=== PATIENT | female | born 1965 | race Caucasian/White ===

== ENCOUNTER 2022-08-15 12:44 | Day surgery (SDC) | payer OTHER ==
--- NOTE | 2022-08-13 08:58 | P.HPOR ---
History of Present Illness H&P Date: 08/13/22 Subjective: This is a 57 year old female that presents today for initial evaluation regarding a left wrist injury that occurred on 08/04/2022. Patient states she was at her home and fell down the stairs, landing onto an outstretched wrist. She was seen at [facility] emergency room the day of the injury and underwent closed reduction and splint immobilization. She's been in her splint. Since then, she has had swelling, bruising and pain in the affected extremity. She is left-hand dominant. 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 She denies any prior injuries to this hand or wrist in the past. Physical Examination: LUE: AIN/PIN/Radial/Ulnar/Median motor intact. Radial/Ulnar/Median SILT. 2+/4 Radial/Ulnar pulses palpated. 5/5 APB, 5/5 FDI. Able to make partial fist. Bruising/swelling present of dorsum hand. Remainder of exam limited due to pain. Imaging: X-Rays of the left wrist 3V taken in office today demonstrate a comminuted intra-articular distal radius fracture with 20 degrees of dorsal angulation at 30 percent dorsal displacement. Non displaced ulnar styloid fracture. Impression: 1.) Left distal radius fracture, displaced. 2.) Left non displaced ulnar styloid fracture Plan: Diagnosis and treatment options were discussed with the patient. visit amount of displacement and angulation and her activity demands, I recommend surgical intervention with a left distal radius open reduction internal fixation. Risks and benefits of surgery including bleeding, infection, damage to surrounding tissue, need for further surgery, residual numbness were discussed and the patient wished to go forward with surgery. I anticipate 6 weeks off of work post operatively. She is placed in a new volar splint in office today and is to remain non-weight bearing and is to rest ice and elevate up to the date of surgery. The patient was agreeable with this plan. -Eric Bates DO Orthopedic Hand/Upper Extremity Surgeon Past Medical History Past Medical History: Musculoskeletal Disorder Additional Past Medical History / Comment(s): tripped & fell down stairs 08/04/22, currently has splint left wrist History of Any Multi-Drug Resistant Organisms: None Reported Past Surgical History: Breast Surgery Additional Past Surgical History / Comment(s): kai breast augmentation Additional Past Anesthesia/Blood Transfusion Reaction / Comment(s): only had local anes. for breast augmentation, no family problems w/anes. Smoking Status: Former smoker Medications and Allergies Home Medications Medication Instructions Recorded Confirmed Type Cholecalciferol [Vitamin D3 (25 25 mcg PO DAILY 08/10/22 08/10/22 History Mcg = 1000 Iu)] HYDROcodone/APAP 7.5-325MG [Eudora 1 tab PO Q6HR PRN 08/10/22 08/10/22 History 7.5-325] Multivit/Folic Acid/Vit K1 1 each PO DAILY 08/10/22 08/10/22 History [One-A-Day Women's 50 Plus Tab] traZODone HCL [Desyrel] 50 mg PO HS 08/10/22 08/10/22 History Allergies Allergy/AdvReac Type Severity Reaction Status Date / Time Penicillins Allergy Swelling Verified 08/10/22 15:46 Physical Examination Osteopathic Statement: *. No significant issues noted on an osteopathic structural exam other than those noted in the History and Physical/Consult.
[~2022-08-15 12:44] MED LIST: DEXAMETHASONE SOD PHOSPHATE 4 MG/ML 1 ML VIAL IV ONE; LACTATED RINGERS 1,000 ML IV SCH; LIDOCAINE 1% (10MG/ML) FOR IV START INTRADERMA PRN; MIDAZOLAM 2 MG/2 ML VIAL IV PRN; MORPHINE SULFATE 4 MG/ML SYRINGE IV PRN; ONDANSETRON 4 MG/2 ML VIAL IVP ONE
[2022-08-15] MEDS ORDERED: LACTATED RINGERS 1,000 ML IV ONE (13:05)
[2022-08-15 13:43] LABS: Basophils % (A) 0 %; Eosinophils # (A) 0.2 k/uL (0-0.7); Eosinophils % (A) 3 %; HCT 42.6 % (34.0-46.0); Lymphocytes # (A) 1.8 k/uL (1.0-4.8); Lymphocytes % (A) 33 %; MCH 31.6 pg (25.0-35.0); MCHC 32.9 g/dL (31.0-37.0); MCV 96.1 fL (80.0-100.0); Mean Platelet Volume 7.2; Monocytes # (A) 0.3 k/uL (0-1.0); Monocytes % (A) 6 %; Neutrophils # (A) 3.2 k/uL (1.3-7.7); Neutrophils % (A) 57 %; Platelet Count 323 k/uL (150-450); RBC 4.44 m/uL (3.80-5.40); RDW 12.2 % (11.5-15.5); WBC 5.6 k/uL (3.8-10.6)
[2022-08-15] MEDS ORDERED: MIDAZOLAM 2 MG/2 ML VIAL IVP ONE (13:46)
[2022-08-15 13:57] LABS: African American GFR (CKD) >90 (>60 ml/min/1.73 sqM); Anion Gap 12 mmol/L; Blood Urea Nitrogen 16 mg/dL (7-17); Calcium 9.9 mg/dL (8.4-10.2); Carbon Dioxide 27 mmol/L (22-30); Chloride 102 mmol/L (98-107); Glucose 81 mg/dL (74-99); Non-African American GFR(CKD) 90 (>60 ml/min/1.73 sqM); Potassium 4.4 mmol/L (3.5-5.1); Sodium 141 mmol/L (137-145)
[2022-08-15] MEDS ORDERED: SCOPOLAMINE 1 MG/72 HR PATCH TRANSDERM ONE (14:00)
--- NOTE | 2022-08-15 14:25 | P.ANPRN ---
Procedure Note - Anesthesia - Nerve Block Performed Left Supraclavicular Single Time Out Performed: Yes Date of Procedure: 08/15/22 Procedure Start Time: 13:45 Procedure Stop Time: 13:49 Location of Patient: PreOp Indication: Acute Post-Operative Pain, Requested by Surgeon Sedation Type: Sedate with meaningful contact maintained Preparation: Sterile Prep Position: Supine Needle Types: Pajunk Needle Gauge: 21 Ultrasound used to visualize needle placement: Yes Ultrasound used to observe medication spread: Yes Blood Aspirated: No Pain Paresthesia on Injection Noted: No Resistance on Injection: Normal Image Stored and Saved: Yes Events: Uneventful and Well Tolerated (Ropivacaine 0.5% 20 mL as dexamethasone 4 mg)
[2022-08-15] MEDS ORDERED: DEXAMETHASONE SOD PHOSPHATE 4 MG/ML 1 ML VIAL ONE (14:51)
[2022-08-15] MEDS ORDERED: LIDOCAINE 2% INJ 20 MG/ML (2 ML VIAL) ONE (14:51)
[2022-08-15] MEDS ORDERED: PROPOFOL 10 MG/ML 20 ML VIAL IV ONE (14:51)
[2022-08-15] MEDS ORDERED: ROPIVACAINE 5 MG/ML 30 ML VIAL ONE (14:51)
[2022-08-15 16:16] VITALS: TEMP 97.6
[2022-08-15 16:54] VITALS: RESP 20
[2022-08-15 17:03] VITALS: BP 120/78; PULSE 73
--- NOTE | 2022-08-15 20:32 | P.OP ---
Date of Procedure: 08/15/22 Preoperative Diagnosis: 1.) Left distal radius fracture, 3 part Postoperative Diagnosis: 1.) Left distal radius fracture, 3 part Procedure(s) Performed: Left distal radius fracture open reduction internal fixation, 3 part Implants: Arthrex short narrow volar distal radius locking plate Anesthesia: ANAYELI, regional Surgeon: Eric Bates Lokie Driver #1: Chance Barney Estimated Blood Loss (ml): 0 Pathology: none sent Condition: stable Disposition: PACU Description of Procedure: This is a 57 year old female who sustained a displaced distal radius fracture and presents today for open reduction internal fixation of their left distal r adius fracture. Risks and benefits of surgery were discussed with the patient including bleeding, damage to surrounding tissue, infection, need for further surgery as well as risks of anesthesia including pulmonary embolism and even and the patient wished to proceed with surgical intervention. The patients was seen in the pre-operative area by myself. Consent and H&P were completed and updated. The correct extremity was marked in the pre-operative area by myself and all other questions were answered. Operative Narrative: The patient was brought to the operating room by the department of anesthesia. They remained on the portable stretcher and a rolling hand table was brought to the side of the operative extremity. Pre-operative time out was performed indicating the correct patient, procedure and laterality. All in the room agreed. Pre-operative antibiotics were given prior to skin incision. The patient was then drifted off to sleep by the department of anesthesia. A nonsterile tourniquet was then applied to the operative extremity and the left upper extremity was then prepped and draped in normal sterile fashion. The operative extremity was the exsanguinated with an esmarch bandage and the tourniquet was inflated to 250mmHg. A longitudinal incision centered over the FCR tendon was made with a 15-blade scalpel. Blunt dissection was taken down to the FCR tendon sheath using Bovie cautery for meticulous hemostasis. The FCR sheath was opened with tenotomy scissors. The floor of the FCR sheath was then incised with a 15-blade scalpel and the FPL tendon and muscle belly was swept bluntly in an ulnar direction to reveal the pronator quadratus. Pronator quadratus was sharply incised with a 15-blade scalpel along the radial border of the distal radius, coming across transversely parallel to the joint at the level of the watershed line, radial artery was identified and protected. Periosteal elevator was then used to elevate the pronator quadratus off the distal radius from a radial to ulnar fashion. A Carrabelle elevator was used to lever the distal piece back into place and free up the fractured fragments. A narrow width 3 hole Arthrex titanium volar locking distal radius plate was chosen to fit the patients anatomy best. This was placed on the distal radius under direct visualization and the oblong hole was drilled and filled with a non-locking screw. The fracture was then reduced to the plate distally and a k-wire was placed in the ulnar most k-wire hole in the proximal row. Fluoroscopy was then utilized to confirm correct placement of plate in the radial/ulnar plane and distal k-wire placement was confirmed to be proximal to the subchondral bone on 20 degree elevated lateral view confirming extra-articular screw placement. Lutheran of radial height, inclination and volar tilt was achieved. The distal rows and radial styloid screw holes were then drilled and filled from ulnar to radial with locking screws. Attention was then brought to the proximal shaft screws. Proximal nonlocking and locking shaft screws were drilled, measured, and filled. The wrist joint was the ranged and full smooth flexion/extension with no crepitus appreciated. Final imaging was taken confirming extra-articular placement of distal screws at DRUJ and radiocarpal joint. The wound was then irrigated. Subcutaneous closure was performed with 4-0 monocryl followed by skin closure with 4-0 monocryl suture. Sterile dressing consisting of adaptic, 4x4s, and a volar plaster splint was applied. Tourniquet was let down and the hand had immediate perfusion. The patient was then woken by the department of anesthesia and transferred to PACU in stable condition. Chance LOMAX was present for the case and assisted in major portions of the operation and hardware placement. Eric Bates D.O. Orthopedic Hand/Upper Extremity Surgeon
== END 2022-08-15 17:21 | disposition home or self-care (01) ==
LOC: OR 12:44
PROVIDERS: ATTEND Orthopaedic Surgery Hand Surgery
DX: S52.552A Other extraarticular fracture of lower end of left radius, initial encounter for closed fracture (principal); G89.18 Other acute postprocedural pain; Z98.890 Other specified postprocedural states; Z87.891 Personal history of nicotine dependence; Z88.0 Allergy status to penicillin; Z79.899 Other long term (current) drug therapy; W10.9XXA Fall (on) (from) unspecified stairs and steps, initial encounter
CPT/HCPCS: 64415; 80048; 85025